=== PATIENT | female | born 1995 | race African-American/Black ===

== ENCOUNTER 2017-02-10 17:47 | Emergency (ER) | payer OTHER ==
[~2017-02-10] VITALS: Ht 165.1 cm; Wt 91.6 kg
[~2017-02-10 17:47] MED LIST: GENTAK5 ML
[2017-02-10] MEDS ORDERED: PREDNISONE10 MG PO (19:47)
[2017-02-10] MEDS ORDERED: NAPROSYN500 MG PO (19:47)
== END 2017-02-10 20:09 | disposition home or self-care (01) ==
LOC: ED 17:47
PROC: 2W3CX1Z Immobilization of Right Lower Arm using Splint (ICD-10-PCS; principal; 2017-02-10)
DX: G56.01 Carpal tunnel syndrome, right upper limb (principal); M54.12 Radiculopathy, cervical region; Z87.891 Personal history of nicotine dependence
CPT/HCPCS: 29125; 99283; J7512

== ENCOUNTER 2019-03-01 12:29 | Emergency (ER) | payer OTHER ==
[~2019-03-01] VITALS: Ht 165.1 cm; Wt 101.6 kg
[~2019-03-01 12:29] MED LIST changes: +ALDACTONE50 MG PO; +FLAGYL500 MG PO; +HYDROXYZINE HCL25 MG PO; +NAPROSYN500 MG PO; +PREDNISONE10 MG PO
[2019-03-01] MEDS ORDERED: MONO-LINYAH1 EACH PO (13:06)
[2019-03-01] MEDS ORDERED: SPIRONOLACTONE50 MG PO (13:06)
== END 2019-03-01 14:35 | disposition home or self-care (01) ==
LOC: ED 12:29
DX: R10.11 Right upper quadrant pain (principal); F17.200 Nicotine dependence, unspecified, uncomplicated; Z79.899 Other long term (current) drug therapy
CPT/HCPCS: 36415; 80053; 83690; 84703; 85025; 96361; 96374; 99284-25; J1885; J7030

== ENCOUNTER 2022-01-15 08:09 | Emergency (ER) | payer OTHER ==
[~2022-01-15] VITALS: Ht 165.1 cm; Wt 125.3 kg
[~2022-01-15 08:09] MED LIST changes: +MONO-LINYAH1 EACH PO; +SPIRONOLACTONE50 MG PO
== END 2022-01-15 09:51 | disposition home or self-care (01) ==
LOC: ED 08:09
DX: S61.216A Laceration without foreign body of right little finger without damage to nail, initial encounter (principal); W22.8XXA Striking against or struck by other objects, initial encounter; F17.200 Nicotine dependence, unspecified, uncomplicated; Z79.899 Other long term (current) drug therapy
CPT/HCPCS: 73140; 99283-25

== ENCOUNTER 2022-04-22 18:12 | Emergency (ER) | payer OTHER ==
[~2022-04-22] VITALS: Ht 165.1 cm; Wt 122.5 kg
[2022-04-22] MEDS ORDERED: LEVONORGESTREL1 EAC2 PO (19:51)
[2022-04-22] MEDS ORDERED: FEROSUL325 MG PO (19:51)
[2022-04-22] MEDS ORDERED: ANUSOL-HC25 MG PR (20:41)
== END 2022-04-22 21:00 | disposition home or self-care (01) ==
LOC: ED 18:12
DX: K64.5 Perianal venous thrombosis (principal); F17.200 Nicotine dependence, unspecified, uncomplicated; Z79.899 Other long term (current) drug therapy
CPT/HCPCS: 99283

== ENCOUNTER 2024-09-26 10:32 | Emergency (ER) | payer OTHER ==
[~2024-09-26] VITALS: Ht 165.1 cm; Wt 140.0 kg
[~2024-09-26 10:32] MED LIST changes: +ANUSOL-HC25 MG PR; +FEROSUL325 MG PO; +LEVONORGESTREL1 EAC2 PO
[2024-09-26] MEDS ORDERED: CLINPRO 5000113 GM DT (10:45)
[2024-09-26] MEDS ORDERED: TRANEXAMIC ACI650 MG PO (10:45)
[2024-09-26] MEDS ORDERED: LABETALOL HCL100 MG PO (10:49)
[2024-09-26] MEDS ORDERED: METFORMIN HCL500 MG PO (10:49)
[2024-09-26 11:05] LABS: BASOPHILS 0.6 % (0.1-1.2); EOSINOPHILS 4.2 % (0.7-5.8); LYMPHOCYTES 38.0 % (19.3-51.7); MCH 20.7 PG (25.6-32.2); MCHC 28.2 g/dL (32.2-35.5); MCV 73.4 fL (79.4-94.8); MONOCYTES 7.8 % (4.7-12.5); NEUTROPHILS 49.1 % (34.0-71.1); RBC 3.38 M/uL (3.93-5.22)
[2024-09-26 11:22] LABS: ALT (SGPT) 27.0 U/L (14-59); AST (SGOT) 20.0 U/L (15-37); GLOMERULAR FILTRATION RATE,EST 96.0 mL/min (>60); PROTEIN, TOTAL 7.9 g/dL (6.4-8.2); UREA NITROGEN 11.0 mg/dL (7-18)
[2024-09-26 13:45] VITALS: BP 114/99
--- NOTE | 2024-09-26 15:25 | EKG ---
[facility] [address] [facility] [place] [address] Signed Normal sinus rhythm with sinus arrhythmia Normal ECG No previous ECGs available Confirmed by Chon Cuba MD ([id number]) on 09/26/2024 3:25:03 PM Electronically Signed By: CHON CUBA MD 09/26/24 1525 PATIENT NAME: JAY GARRIDO CARLENE Electrocardiogram DATE OF : [birth year] PHYSICIAN: CHON CUBA MD REPORT #: [id number] REPORT IS CONFIDENTIAL AND NOT TO BE RELEASED WITHOUT AUTHORIZATION
== END 2024-09-26 13:45 | disposition home or self-care (01) ==
LOC: ED 10:32
PROVIDERS: Emergency Medicine
DX: N93.8 Other specified abnormal uterine and vaginal bleeding (principal); D64.9 Anemia, unspecified; F17.200 Nicotine dependence, unspecified, uncomplicated; Z79.84 Long term (current) use of oral hypoglycemic drugs; Z79.899 Other long term (current) drug therapy
CPT/HCPCS: 36415; 71045; 76830; 76856; 80053; 83735; 84484; 84703; 85025; 85379; 93005; 93010; 99285-25